=== PATIENT | female | born 2000 | race Caucasian/White ===

== ENCOUNTER 2022-03-03 15:38 | Emergency (ER) | payer BC, SELFPAY ==
--- NOTE | 2022-03-03 16:07 | ED.URI ---
HPI - URI/Sore Throat General Chief Complaint: Upper Respiratory Infection Stated Complaint: cough,chest pain, congestion Source: patient and RN notes reviewed Mode of arrival: ambulatory Limitations: no limitations History of Present Illness HPI Narrative: 22-year-old female presented for complaint of sinus congestion and pressure, cough, fatigue and feeling lightheaded for about 2 weeks. She endorses postnasal drainage, her ears feel clogged, headache, and body aches yesterday. She has been taking Sudafed, ibuprofen, Tylenol and nasal spray. She also took 1 week of amoxicillin prescribed by her PCP but states her symptoms were worse the next day. Denies nausea, vomiting, diarrhea, shortness of breath or wheezing. Of note, LMP 01/19/2022. She has not taken a home test. She is not vaccinated for COVID or flu. She denies sick contacts. MD elicited complaint: cough Related Data Home Medications Medication Instructions Recorded Confirmed ferrous sulfate 325 mg (65 mg tablet 03/03/22 iron) tablet lorazepam 1 mg tablet tablet 03/03/22 sertraline 50 mg tablet tablet 03/03/22 Allergies Allergy/AdvReac Type Severity Reaction Status Date / Time doxycycline Allergy Blister Verified 03/03/22 16:05 Review of Systems Review of Systems: CONSTITUTIONAL: Endorses malaise EYES: Denies visual changes, redness, or discharge ENT: Reports rhinorrhea, congestion, sinus pain CARDIOVASCULAR: Denies chest pain, palpitations, edema RESPIRATORY: Reports cough, post nasal drainage. Denies dyspnea GASTROINTESTINAL: Denies abdominal pain, nausea, vomiting, diarrhea MUSCULOSKELETAL: Endorses myalgia Exam Narrative: GENERAL: well-appearing HEAD: Normocephalic EYES: conjunctivae clear ENT: Mucous membranes moist. TM pearly nuñez with normal light reflex bilaterally; no tragal tenderness. Oropharynx normal, no drooling, no hoarseness, no trismus, uvula midline. NECK: Supple. No lymphadenopathy CHEST: Clear to auscultation, breath sounds equal. HEART: Regular rate and rhythm. No murmur heard. SKIN: Warm, dry, no rash. Course Course Emergency Course: Patient is aware of diagnosis, understands and agrees to treatment plan. Anticipatory guidance given. Patient agrees to follow-up as directed and is aware of reasons to seek care at the emergency department. Portions of this record may have been created with voice recognition software Level of Care: Express Care Visit Vital Signs Vital signs: Vital Signs Temperature 96.9 F L 03/03/22 16:08 Pulse Rate 75 03/03/22 16:08 Respiratory Rate 16 03/03/22 16:08 Blood Pressure 109/61 03/03/22 16:08 Pulse Oximetry 100 03/03/22 16:08 Temperature 96.9 F L 03/03/22 16:08 Pulse Rate 75 03/03/22 16:08 Respiratory Rate 16 03/03/22 16:08 Blood Pressure 109/61 03/03/22 16:08 Pulse Oximetry 100 03/03/22 16:08 reviewed MDM - URI/Sore Throat MDM Narrative Medical decision making narrative: Urine preg ordered due to LMP 01/19/22. Positive urine . Advised supportive treatment for URI, avoid OTC decongestants etc, and advised to follow-up with [facility]. Verbalizes understanding. Differential Diagnosis Differential diagnosis: Likely upper respiratory infection, sinusitis and viral infection Lab Data Labs: UCG Bedside Result Positive Reference Range: Negative Discharge Plan Discharge Clinical Impression: Positive urine test Upper respiratory infection Qualifiers: URI type: unspecified URI Qualified Code(s): J06.9 - Acute upper respiratory infection, unspecified Patient Disposition: Home, Self-Care Condition: Stable Instructions: Antibiotic Form Additional Instructions: Saline nasal spray Tylenol 1000mg every 8 hours as needed for pain Symptomatic treatment includes: rest, fluids, and increase humidity of the air at home. Positive urine pr
[2022-03-03 16:08] VITALS: BP 109/61; PULSE 75; RESP 16; TEMP 36.1; O2SAT 100
== END 2022-03-03 16:46 | disposition home or self-care (01) ==
PROVIDERS: Emergency Provider Nurse Practitioner Family
DX: O99.519 Diseases of the respiratory system complicating pregnancy, unspecified trimester (principal); Z3A.00 Weeks of gestation of pregnancy not specified; J06.9 Acute upper respiratory infection, unspecified
CPT/HCPCS: 81025; 99212; G0463

== ENCOUNTER 2022-03-18 13:56 | Emergency (ER) | payer BC, SELFPAY ==
[2022-03-18 13:56] VITALS: BP 99/57; PULSE 72; RESP 18; TEMP 36.8; O2SAT 100
[2022-03-18 14:05] VITALS: TEMP 36.2
[2022-03-18 14:16] VITALS: BP 108/60; PULSE 84; RESP 23; O2SAT 100
[2022-03-18] MEDS: KETOROLAC 30 MG/ML VIAL (*BKC) IV PUSH (14:22)
[2022-03-18] MEDS: ONDANSETRON INJ 4 MG/2 ML VIAL IV PUSH (14:22)
[2022-03-18] MEDS: SODIUM CHLORIDE 0.9% IV 1,000 ML 999 ML IV CONT (14:23)
[2022-03-18 14:30] LABS: Basophils Percent Auto 0.2 % (0.2-1.2); Eosinophils Absolute Auto 0.1 K/mm3 (0-0.3); Eosinophils Percent Auto 0.7 % (0-4.4); Hematocrit 40.9 % (37.0-47.0); Hemoglobin 13.8 g/dL (12.0-15.0); Immature Granulocyte Absolute 0.02 K/mm3 (0.00-0.031); Immature Granulocyte Percent A 0.2 % (0-0.5); Lymphocytes Absolute Auto 1.99 K/mm3 (0.9-3.2); Lymphocytes Percent Auto 22.8 % (18.3-44.2); Mean Corpuscular HGB Conc 33.7 g/dl (32-36); Mean Corpuscular Hemoglobin 29.7 pg (26-34); Mean Platelet Volume 10.8 fl (7.4-10.4); Monocytes Absolute Auto 0.7 K/mm3 (0.1-0.6); Monocytes Percent Auto 7.8 % (2.6-8.5); Neutrophils Absolute Auto 5.9 K/mm3 (1.3-6.7); Neutrophils Percent Auto 68.3 % (45.5-73.1); Platelet Count Result 248 k/mm3 (150-375); Red Blood Count 4.65 M/mm3 (4.2-5.4); Red Cell Distribution Width 12.4 % (11.5-14.5); White Blood Count 8.7 K/mm3 (4.5-10.0)
[2022-03-18 14:31] VITALS: BP 101/48; PULSE 68; RESP 19; O2SAT 100
[2022-03-18 14:41] LABS: Alanine Aminotransferase 16 U/L (6-35); Albumin Level 4.5 g/dL (3.5-5.1); Alkaline Phosphatase 52 U/L (38-126); Anion Gap 11 mmol/L (8-16); Aspartate Amino Transferase 20 U/L (14-36); Bilirubin,Total 0.8 mg/dL (0.2-1.3); Blood Urea Nitrogen 6 mg/dL (7-17); Calcium 8.9 mg/dL (8.4-10.2); Carbon Dioxide 18 mmol/L (22-30); Chloride 106 mmol/L (98-107); Estimated CRCL calculation 159 ml/min; Estimated Glomerular Filt Rate > 60; Glucose 88 mg/dL (65-110); Potassium 3.8 mmol/L (3.4-5.0); Sodium 135 mmol/L (137-145)
[2022-03-18 14:42] LABS: INR 1.1; Prothrombin Time 13.7 Seconds (11.1-14.7)
--- NOTE | 2022-03-18 15:16 | ED.ABDPAIN ---
HPI - Abdominal Pain General Chief Complaint: Abdominal Pain Stated Complaint: abd pain Time Seen by Provider: 03/18/22 13:58 History of Present Illness HPI narrative: Patient is a 22-year-old female who presents ER with lower abdominal pain and cramping. Began 10 minutes after taking her misoprostol for elective . She is 8 weeks along her . She went to the [facility]. She had a confirmed IUP on ultrasound prior to receiving her medications. She reports scant bleeding that began yesterday. No fevers or chills or sweats. She started having nausea and vomiting with her cramping. Patient is G1, P0. Related Data Home Medications Medication Instructions Recorded Confirmed ferrous sulfate 325 mg (65 mg 1 tablet PO DAILY 03/03/22 03/03/22 iron) tablet lorazepam 1 mg tablet 1 tablet PO BID PRN Anxiety 03/03/22 03/03/22 sertraline 50 mg tablet 1 tablet PO DAILY 03/03/22 03/03/22 Allergies Allergy/AdvReac Type Severity Reaction Status Date / Time doxycycline Allergy Blister Verified 03/18/22 14:27 Review of Systems Review of Systems: All systems reviewed & are unremarkable except as noted in HPI and below Constitutional: Constitutional: Denies chills, Denies fatigue and Denies fever(s) ENT: Denies nasal congestion and Denies sore throat Respiratory: Respiratory: Denies cough and Denies dyspnea Gastrointestinal: Gastrointestinal: Reports abdominal pain, Denies diarrhea, Reports nausea and Reports vomiting Genitourinary: Genitourinary: Denies nocturia and Denies dysuria PMFSH Past Medical History Medical History (Updated 03/18/22 @ 17:25 by Gordon Wick MD) Healthy female adult Surgical History Surgical History (Updated 03/18/22 @ 15:20 by Gordon Wick MD) No pertinent past surgical history Exam Narrative: GENERAL: Uncomfortable-appearing, well-nourished, and in no acute distress. HEAD: Normocephalic, atraumatic. ENT: Mucous membranes moist. CHEST: Clear to auscultation. No respiratory distress. HEART: Regular rate and rhythm. Normal peripheral pulses. ABDOMEN: Soft, mild suprapubic discomfort without rebound/guarding, nondistended. EXTREMITIES: Normal range of motion. No edema. SKIN: Warm, dry, no rash. NEURO: Alert and oriented x3. PSYCH: Normal mood and affect. Course Course Emergency Course: Cramping waxing and waning. Labs unremarkable. Consider this normal course for medication induced . Discharge home. Vital Signs Vital signs: Vital Signs Temperature 98.2 F 03/18/22 13:56 Pulse Rate 72 03/18/22 13:56 Respiratory Rate 18 03/18/22 13:56 Blood Pressure 99/57 L 03/18/22 13:56 Pulse Oximetry 100 03/18/22 13:56 Oxygen Delivery Room Air 03/18/22 13:56 Temperature 97.2 F L 03/18/22 14:05 Pulse Rate 68 03/18/22 14:31 Respiratory Rate 19 03/18/22 14:31 Blood Pressure 101/48 L 03/18/22 14:31 Pulse Oximetry 100 03/18/22 14:31 Oxygen Delivery Room Air 03/18/22 13:56 MDM - Abdominal Pain Lab Data Result diagrams: 03/18/22 14:22 03/18/22 14:22 Labs: Lab Results 03/18/22 03/18/22 03/18/22 Range/Units 14:22 14:22 14:22 WBC 8.7 (4.5-10.0) K/mm3 RBC 4.65 (4.2-5.4) M/mm3 Hgb 13.8 (12.0-15.0) g/dL Hct 40.9 (37.0-47.0) % MCV 88.0 (80-100) fl MCH 29.7 (26-34) pg MCHC 33.7 (32-36) g/dl RDW 12.4 (11.5-14.5) % Plt Count 248 (150-375) k/mm3 MPV 10.8 H (7.4-10.4) fl Immature Gran % (Auto) 0.2 (0-0.5) % Neut % (Auto) 68.3 (45.5-73.1) % Lymph % (Auto) 22.8 (18.3-44.2) % Harmon % (Auto) 7.8 (2.6-8.5) % Eos % (Auto) 0.7 (0-4.4) % Baso % (Auto) 0.2 (0.2-1.2) % Lymph # (Auto) 1.99 (0.9-3.2) K/mm3 Harmon # (Auto) 0.7 H (0.1-0.6) K/mm3 Eos # (Auto) 0.1 (0-0.3) K/mm3 Baso # (Auto) 0.0 (0.0-0.1) K/mm3 Abs Immat Gran (auto) 0.02 (0.00-0.031) K/mm3 Absolute Neuts (auto) 5.9 (1.3-6.7)
--- NOTE | 2022-03-18 15:31 | PC.NURSE ---
Patient lying in bed eating. Patient reports she feels much better.
[2022-03-18] MEDS: HYDROcodone/acetaminophen (*CRX) 5-325 MG TABLET 1 TAB PO (17:26)
== END 2022-03-18 17:34 | disposition home or self-care (01) ==
PROVIDERS: Emergency Provider Emergency Medicine; PCP Family Medicine
DX: N94.89 Other specified conditions associated with female genital organs and menstrual cycle (principal)
CPT/HCPCS: 36415; 80053; 84702; 85025; 85610; 85730; 86850; 86900; 86901; 96361; 96374; 96375; 99284; A9270; J1885; J2405; J7030

== ENCOUNTER 2025-03-14 11:11 | Emergency (ER) | payer BC, SELFPAY ==
--- NOTE | 2025-03-14 11:15 | ED.URI ---
HPI - URI/Sore Throat General Chief Complaint: Upper Respiratory Infection Stated Complaint: Fever Source: patient Mode of arrival: ambulatory Limitations: no limitations Related Data Home Medications ?Medication ?Instructions ?Recorded ?Confirmed ?Last Taken ?Type sertraline 50 mg tablet 1 tablet PO DAILY 03/03/22 05/30/24 Unknown History Allergies Allergy/AdvReac Type Severity Reaction Status Date / Time levofloxacin (From Levaquin) Allergy Mild Hives Verified 03/14/25 11:31 doxycycline Allergy Blister Verified 03/14/25 11:31 Review of Systems Review of Systems: All systems reviewed & are unremarkable except as noted in HPI and below Constitutional: Constitutional: Denies chills, Denies fatigue, Denies fever(s), Denies headache(s), Denies malaise and Denies weakness Eyes: Eyes: Denies blurry vision, Denies itchy eyes and Denies loss of vision ENT: Denies otalgia, Denies headache(s), Reports nasal congestion, Denies sinus pain and Denies sore throat Cardiovascular: Cardiovascular: Denies chest pain, Denies irregular heart rhythm and Denies dyspnea Respiratory: Respiratory: Reports cough and Denies dyspnea Gastrointestinal: Gastrointestinal: Denies abdominal pain, Denies diarrhea, Denies nausea and Denies vomiting Musculoskeletal: Musculoskeletal: Denies back pain, Denies myalgias and Denies arthralgias Integumentary/Breasts: Skin/Breast: Denies pruritus and Denies rash Neurologic: Denies headache(s), Denies loss of vision and Denies weakness Psychiatric: Psychiatric: Reports no additional psychiatric complaints Endocrine: Endocrine: Denies fatigue Allergic/Immunologic: Allergic/Immunologic: Denies itchy eyes PMFSH Past Medical History Medical History (Updated 03/14/25 @ 11:51 by Beatrice Jacobson, [employer]) Encounter for gynecological examination HPV in female Healthy female adult Surgical History Surgical History H/O wisdom tooth extraction No pertinent past surgical history Social History Social History Smoking status: Former smoker Alcohol intake: current Substance use: never Substance use type: does not use Do You Feel Safe in your Home?: Yes Lack of Transportation: No Lack of Food: Never True Current Housing: I Have Housing Concerned About Future Housing: No Difficulty Paying Gas/Electric Bills: No Difficulty Paying for Meds: No Currently Unemployed: No Education: High School Diploma/GED Difficulty w/ Childcare or Family Care: No Living arrangements: with roommate(s) Occupation/Education: occupation Gender identity (if verbalized by the patient): Female Comments At time of signature, agree with nursing past medical, surgical, social and family history. There is no relevant family history pertinent to the presenting complaint. Exam Const: General: cooperative, healthy appearing, comfortable, no acute distress and well nourished Nutritional Appearance: well nourished Orientation/consciousness: patient oriented x3 Limitations: no limitations HENMT: Head: normal to inspection, normocephalic and atraumatic Ears: hearing grossly normal bilaterally, external ears normal, TM's normal bilaterally, EAC's normal and no periauricular adenopathy Face/Nose/Sinus: Normal external nose present, Abnormal mucous membranes and turbinates present erythematous bilateral and diffuse, normal facial exam, sinuses nontender and face symmetric Face and sinus: normal facial exam, sinuses nontender and face symmetric Mouth: Yes Normal oral and palatal mucosa present, Yes lip normal, Yes tongue normal, Yes Normal salivary glands and ducts present, Yes oropharynx normal and Yes moist mucous membranes Teeth and gingiva: dentition normal Throat: posterior oropharynx normal, tonsils normal and uvula midline Eyes: General: appearance normal, both eyes and all related structures Alignment and Position: alignment normal and position normal Periorbital: periorbital findings normal Eyelids: eyelids normal Pupils: Equal, round and reactive pupils present Neck: Neck: normal visual inspection, full ROM, no lymphadenopathy and supple Chest: Chest palpation & inspection: normal inspection of the chest and normal palpation of entire chest wall Resp: Effort & Inspection: normal respiratory effort and able to speak in complete sentences Auscultation: clear to auscultation bilaterally, no crackles, no rales, no rhonchi and no wheezes Cardio: Rate: regular rate Rhythm: regular rhythm Heart sounds: S1 normal heart sound present and S2 normal heart sound present GI: Inspection: normal to inspection Skin: General skin exam: normal color and no rashes or lesions noted Neuro: General: patient oriented x3 and moves all extremities Cranial nerves: Yes Equal, round and reactive pupils present Speech: normal speech Gait exam (Neuro): Normal gait present Extrem: General: normal to inspection, full ROM and no edema Psych: Appearance: grossly normal and well kempt Mental Status: mental status grossly normal Speech and movement: Normal speech and movement present Affect: normal affect Attitude: cooperative Thought process: Normal thought process present Course Course Emergency Course: Discharge instructions reviewed with patient, as well as provided in writing per nursing staff. The instructions also include specific and strict return/GO TO THE ER as well as f/u information. All questions have been answered, and the patient deny any further questions with discharge and discharge plan. Portions of this record may have been created with voice recognition software Level of Care: Express Care Visit Vital Signs Vital signs: Vital Signs Temperature 36.7 C 03/14/25 11:18 Pulse Rate 112 H 03/14/25 11:18 Respiratory Rate 20 03/14/25 11:18 Blood Pressure 99/71 L 03/14/25 11:18 Pulse Oximetry 100 03/14/25 11:18 Oxygen Delivery Room Air 03/14/25 11:18 Temperature 36.7 C 03/14/25 11:18 Pulse Rate 113 H 03/14/25 11:56 Respiratory Rate 20 03/14/25 11:18 Blood Pressure 108/67 03/14/25 11:56 Pulse Oximetry 100 03/14/25 11:56 Oxygen Delivery Room Air 03/14/25 11:56 Reviewed MDM - URI/Sore Throat MDM Narrative Medical decision making narrative: Pt well hydrated appearing, in no respiratory distress, hemodynamically stable. Recommend supportive care. The patient is stable at time of discharge the clinical impression was discussed and the patient was given the opportunity to ask questions, which were addressed as completely as possible given the information available at present. Anticipatory guidance and return to care precautions were discussed and the importance of primary care follow-up was stressed and encouraged. The patient voiced understanding of the plan, indications to return, and the need for follow-up. Exam findings show no acute concerns or changes Patient is appropriate for outpatient treatment and follow-up. Differential diagnosis considered: [place] virus, strep pharyngitis, allergic rhinitis, upper respiratory tract infection, sinusitis, rhinosinusitis, nasopharyngitis. viral pharyngitis, otitis media, otitis externa, otitis effusion, foreign body, cerumen impaction, viral syndrome, and influenza.? Medical Records Attestation: I reviewed the patient's medical records. Lab Data Attestation: I reviewed the patient's lab results. Labs: Lab Results 03/14/25 03/14/25 Range/Units 11:28 11:40 POC Urine Color Tea colored POC Urine Clarity Cloudy POC Urine pH 6.0 POC Ur Specif [place] 1.030 POC Urine Protein 1+ (Negative) POC Ur Glucose (UA) Negative (Negative) POC Urine Ketones Negative (Negative) POC Urine Blood Negative (Negative) POC Urine Nitrite Negative (Negative) POC Urine Bilirubin 1+ (Negative) POC Urine Urobilinogen 0.2 POC U Leukocyte Esteras Negative (Negative) POC Grp A Strep Screen Positive (Negative) Discharge Plan Discharge Clinical Impression: Strep throat Patient Disposition: Home Condition: Stable Instructions: Strep Throat (ED) Additional Instructions: Your rapid strep swab was positive today at [facility]. After 24 hours on antibiotics throw tooth brush away and start using a new one. Wash your sheets and cup/water bottle that is used daily. Do not share drinks. Take Motrin alternating with Tylenol for pain and fever alternating every 3 hours. 8 AM: Tylenol 11 AM: Ibuprofen 2 PM: Tylenol 5 PM: Ibuprofen 8 PM: Tylenol 11 PM: Ibuprofen 2 AM: Tylenol 5 AM: Ibuprofen Increase fluids, avoid caffeine. Other symptomatic treatments include: -Antihistamine medication such as Benadryl at night and Zyrtec/Claritin/Jahaira during the day can help improve symptoms. -Use Flonase twice a day for 5 days then daily to help reduce the inflammation and dry up your sinuses. -You can also use Sudafed or Mucinex. Be sure to drink plenty of water with these medications at least 8 ounces with every dose and it is important to drink 8 to 10 glasses of water per day. Water is a natural decongestant -Eat and drink things that are easy to swallow, like tea or soup, or popsicles. -Oral rinses such as: Salt water gargles and/or may use topical anesthetic (eg. Chloraseptic spray) or lozenges to relieve dryness or throat pain). -Frequent hand washing or hand railroad detective is one of the best ways to prevent spread of infection. -Using a vaporizer or humidifier at night will also help thin secretions and help with coughing up phlegm. -Follow up with primary care provider in 3-5 days if condition is not improving - For new or worsening symptoms go directly to the nearest ER Patient Language: Icelandic Prescriptions: New amoxicillin-pot clavulanate 875-125 mg tablet 1 tablet PO Q12H 10 Days Qty: 20 0RF No Action sertraline 50 mg tablet 1 tablet PO DAILY Follow-up/Referrals: Nixon Grewal MD [Physician] - 3 Days (Establish care) Stand Alone Forms: Work/School Release IP Time of Disposition: 11:52
[2025-03-14 11:18] VITALS: BP 99/71; PULSE 112; RESP 20; TEMP 36.7; O2SAT 100
[2025-03-14 11:40] LABS: EDSTREPNEGPOS1 Positive (Negative)
[2025-03-14 11:50] LABS: EDUAAPPEAR Cloudy; EDUABILI 1+ (Negative); EDUABLOOD Negative (Negative); EDUACOLOR1 Tea Colored; EDUAGLUCOSE Negative (Negative); EDUAKETONE Negative (Negative); EDUALEUKO Negative (Negative); EDUANITRATE Negative (Negative); EDUAPROTEIN 1+ (Negative); EDUAUROBILI 0.2
[2025-03-14 11:56] VITALS: BP 108/67; PULSE 113; O2SAT 100
== END 2025-03-14 11:56 | disposition home or self-care (01) ==
PROVIDERS: Emergency Provider Nurse Practitioner Family
DX: J02.0 Streptococcal pharyngitis (principal); Z87.891 Personal history of nicotine dependence
CPT/HCPCS: 81003; 87880; 99213; G0463

== ENCOUNTER 2025-03-14 13:57 | Emergency (ER) | payer BC, SELFPAY ==
--- NOTE | ~2025-03-14 | XR_ITS ---
XR chest 1V portable Ordering provider: Chris Noriega MD History: 25 years Female with . URI X WEAK X OVERHEATED XVOMITING TODAY . Comparison: None. FINDINGS: MEDIASTINUM: The cardiac silhouette is not enlarged. LUNGS: No infiltrates, effusions or pneumothorax. OTHER: No free air under the diaphragm. IMPRESSION: No acute cardiopulmonary pathology. Reviewed, dictated and finalized at location A.
--- OUTSIDE RECORDS SUMMARY | 2025-03-14 14:00 | XMS_ITS | Referral Summary ---
Author Organization [facility] Address [address] [place] [address] Care Team Providers Care [employer] Teacher Name Role Phone Chester Bañuelos MD Primary Care Provider [phone] Encounters Date Type Department Care Team Description 02/03/2025 2:00 PM CDT Telemedicine [facility] Medical Group Family Medicine at [address] [place] [address] Chester Bañuelos MD ALIREZA (generalized anxiety disorder) (Primary Dx); Moderate episode of recurrent major depressive disorder (HCC) from Last 3 Months Allergies Active Allergy Reactions Criticality Noted Date Comments Doxycycline Other (See comments),Rash Medium 7 Reaction: Other Levofloxacin Palpitations Low 05/01/2019 Medications hydrocortisone 1 % cream Apply 1 Application topically 2 (two) times a day 30 g 4 Active Additional Information Patient not taking.Reported on 02/03/2025 NOT IN DATABASE, PRESCRIPTION,In dications:Abnor mal weight gain,Class 2 obesity due to excess calories without serious comorbidity with body mass index (BMI) of 38.0 to 38.9 in adult,PCOS (polycystic ovarian syndrome) Semaglutide 2.65 mg/ml with levocarnitine 100mg/ml 0.1 ml weeks 1-4 0.2 ml weeks 5-8 0.4 ml weeks 9-12 0.8 ml weeks 13-16 1 ml week 17 and on. Please send 2 ml 04/30/24 2 each 5 Active clonazePAM (KlonoPIN) 2 mg tabletIndicatio ns:Panic Disorder Take 1 tablet (2 mg total) by mouth 2 (two) times a day as needed for anxiety Next time just activate your next 5 refills 60 tablet 5 5 025 Active sertraline (ZOLOFT) 100 mg tabletIndicatio ns:ALIREZA (generalized anxiety disorder),Moder ate episode of recurrent major depressive disorder (HCC) Take 1 tablet (100 mg total) by mouth nightly 90 tablet 1 5 025 Active Active Problems Problem Noted Date Diagnosed Date Abnormal weight gain 02/08/2024 Class 1 obesity due to exces s calories without serious comorbidity with body mass index (BMI) of 30.0 to 30.9 in adult 02/08/2024 Assessment & Plan (07/16/2024 8:19 AM CDT): Recommended aggressive Lifestyle modification and weight loss for improving overall weight related health conditions. Follow up in 1 or 3 months for continuing Lifestyle Medicine education and management visit. Recommend Lifestyle/Nutrition/Weight Loss Seminar on every other Tuesdays @ 5pm. 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 07/10/2023 Assessment & Plan (07/10/2023 11:28 PM CDT): Reviewed recent pt thyroid ultrasound report and images Noted heterogenous thyroid gland findings suggestive of chandu's No discrete thyroid nodules noted No compressive symptoms Check TSH and TPO ab Obesity (BMI 30-39.9) 07/10/2023 Assessment & Plan (07/10/2023 11:29 PM CDT): Counseled on diet and exercise Rule out Cushings , will order low dose dexamethasone suppression test Hirsutism 07/10/2023 Lentigines 11/18/2020 Overview (01/04/2021): Last Assessment & Plan: - Benign, patient reassured - Skin cancer, sun protection, and photoaging discussed - Sunscreen handout provided Multiple benign melanocytic nevi of upper extremity, lower extremity, and trunk 11/18/2020 Overview (01/04/2021): Last Assessment & Plan: - No atypical or concerning moles on exam today - Reviewed ABCDEs of melanoma - Sun protection reviewed, handout provided - Annual FBSE recommended - Strongly advised patient to stop tanning bed use; Counseled on associated risks of skin cancer and skin aging Labial adhesions 11/18/2020 Moderate episode of recurrent major depressive d isorder 10/12/2020 Recurrent major depressive disorder, in full rem ission 09/01/2020 Assessment & Plan (09/01/2020 2:46 PM WARRANTY ADMINISTRATOR): Responded well to switch from Lexapro to Zoloft. She states her mood is much improved. She has not had the using Ativan last 1 week. Patient denies any side effects will continue current regimen patient advised to call us with any question concerns prior to her three-month follow-up Abnormal uterine bleeding (AUB) 08/05/2020 ALIREZA (generalized anxiety disorder) 06/18/2019 Assessment & Plan (09/01/2020 2:47 PM WARRANTY ADMINISTRATOR): Responding well significant reduction in need for Ativan. Gastroesophageal reflux disease without esophagi tis 06/18/2019 Acne vulgaris 01/24/2015 Multiple benign nevi 01/24/2015 Resolved Problems Problem Noted Date Diagnosed Date Resolved Date Bipolar 1 disorder, depressed, moderate 03/28/2023 05/22/2023 Immunizations Immunization Administration Dates Next Due DTaP 2000,2000,2000 Hep B, Adolescent or Pediatric 2000,1999 HiB 2000,2000,2000 IPV 2000,2000 Influenza, Unspecified 06/02/2024(Deferr ed: Patient decision),11/15/2023(Deferred: Patient decision),11/29/2022(Deferred: Patient Refused),06/28/2022(Deferred: Patient decision) Pneumococcal Conjugate 7-Valent 2000,07/06,2000 Varicella 03/22/2007 Social History Tobacco Use Types Packs/Day Years Used Date Smoking Tobacco: Never Smokeless Tobacco: Never Tobacco Cessation:Counseling Given: Not Answered Alcohol Use Standard Drinks/Week Comments Yes 0 (1 standard drink = 0.6 oz pur e alcohol) socially AUDIT-C Answer Date Recorded Q1: How often do you have a drink containing alcohol? Never 10/16/2024 Q2: How many drinks containi ng alcohol do you have on a typical day when you are drinking? Patient does not drink Q3: How often do you have si x or more drinks on one occasion? Never 10/16/2024 PHQ-2 Answer Date Recorded PHQ-2 Total Score (If total score is 3 or more points, staff should administer the PHQ-9) 0 02/03/2025 Comments No Sex and Gender Information Value Date Recorded Sex Assigned at Not on file Legal Sex Female 10:51 PM WARRANTY ADMINISTRATOR Gender Identity Female 03/26/2020 10:19 AM CDT Sexual Orientation Not on file Last Filed Vital Signs Vital Sign Reading Time Taken Comments Blood Pressure 108/70 06/13/2023 11:23 AM CDT Pulse 91 06/13/2023 11:23 AM CDT Temperature 36.9 C (98.4 F) 05/22/2023 8:53 AM CDT Respiratory Rate 17 06/13/2023 11:23 AM CDT Oxygen Saturation 98% 05/22/2023 8:53 AM CDT Inhaled Oxygen Concentration - - Weight 74.8 kg (165 lb) 02/03/2025 2:22 PM CDT Height 165.1 cm (5' 5) 02/03/2025 2:22 PM CDT Body Mass Index 27.46 02/03/2025 2:22 PM CDT Plan of Treatment Not on file Procedures Procedure Name Priority Date/Time Associated Diagnosis Comments HM PAP SMEAR WITH HPV Routine 09/17/2021 from Last 3 Months or Most Recently Relevant to Health Maintenance Results * HM PAP SMEAR WITH HPV (09/17/2021) Historical Provider HEALTH MAINTENANCE Final Result from Last 3 Months or Most Recently Relevant to Health Maintenance Insurance [facility] Care Teams [employer] Special Education Teacher Relationship Specialty Start Date End Date Chester Bañuelos MD [facility] [place] [place] [address] PCP - General Family Medicine 05/22/23
--- OUTSIDE RECORDS SUMMARY | 2025-03-14 14:00 | XMS_ITS | Clinical Summary ---
Author Organization [facility] Address [address] [place] [address] Care Team Providers Care Engineer/Conductor Name Role Phone Chester Bañuelos MD Primary Care Provider Allergies Active Allergy Reactions Criticality Noted Date [...] 09/01/2020 Assessment & Plan (09/01/2020 2:46 PM PHYSICAL BIOCHEMIST): Responded well to switch from Lexapro to [...] 06/18/2019 Assessment & Plan (09/01/2020 2:47 PM PHYSICAL BIOCHEMIST): Responding well significant reduction in need for Ativan. Gastroesophageal reflux disease without esophagi tis 06/18/2019 Acne vulgaris 01/24/2015 Multiple benign nevi 01/24/2015 Resolved Problems Problem Noted Date Diagnosed Date Resolved Date Bipolar 1 disorder, depressed, moderate 03/28/2023 05/22/2023 Encounters Date Type Department Care Team Description 02/03/2025 2:00 PM CDT Telemedicine [facility] Medical Group Family Medicine at [address] [address] Chester Bañuelos MD ALIREZA (generalized anxiety disorder) (Primary Dx); Moderate episode of recurrent major depressive disorder (HCC) from Last 3 Months Immunizations Immunization Administration Dates Next Due DTaP 2000,2000,2000 Hep B, Adolescent or Pediatric 2000,1999 HiB 2000,2000,2000 IPV 2000,2000 Influenza, Unspecified 06/02/2024(Deferr ed: Patient decision),11/15/2023(Deferred: Patient decision),11/29/2022(Deferred: Patient Refused),06/28/2022(Deferred: Patient decision) Pneumococcal Conjugate 7-Valent 2000,07/06,2000 Varicella 03/22/2007 Surgical History Surgery Date Site/Laterality Comments DE DRAINAGE FINGER ABSCESS SIMPLE Incision And Drainage Of Finger Abscess - (Added by TW Conv) DE TONSILLECTOMY PRIMARY/SEC ONDARY <AGE 12 Tonsillectomy - (Added by TW Conv) TONSILLECTOMY AND ADENOIDECTOMY WISDOM TOOTH EXTRACTION Bilateral Medical History Medical History Date Comments Other specified health status No known problems - (Added by TW Conv) Anxiety disorder Anxiety - (Adde d by TW Conv) MRSA (methicillin resistant staph aureus) culture positive Family History Medical History Relation Name Comments Anxiety disorder Brother Hypertension Father Jose garcia Ovarian cancer Maternal Grandmother Anxiety disorder Mother Ira garcia Hypertension Mother Ira garcia uterine fibroids Mother Ira garcia Relation Name Status Comments Brother Alive Father Jose garcia Alive Maternal Grandmother Mother Ira garcia Alive Sister Alive Social History Tobacco Use Types Packs/Day Years [...] on file Legal Sex Female 10:51 PM PHYSICAL BIOCHEMIST Gender Identity Female 03/26/2020 10:19 AM CDT Sexual Orientation Not on file Obstetrics History Para Term AB IAB SAB Ectopic Multiple Livin g Live Births 0 0 0 0 0 0 0 0 0 0 0 Last Filed Vital Signs Vital Sign Reading [...] 02/03/2025 2:22 PM CDT Plan of Treatment Health Maintenance Due Date Last Done Comments Hepatitis C Screening 2000 Varicella Vaccines (2 of 2 - 2-dose childhood series) 06/14/2007 03/22/2007 DTaP/Tdap/Td Vaccine (4 - Tdap) 01/26/2011 2000, 2000, 2000 HPV Vaccines (1 - 3-dose series) 01/26/2015 Regular Well Visit/Exam 18-64 01/26/2018 Cervical Cancer Screening 09/17/2022 09/17/2021 Influenza Vaccine (Season Ended) 2025 Depression Screening 02/03/2026 02/03/2025, 02/08/2024, 06/13/2023, Additional history exists Hepatitis B Screening Completed 2000, 000 Pneumococcal vaccine <65 Aged Out 001, 2000, 2000 No longer eligible based on patient's age to complete this topic Procedures Procedure Name Priority Date/Time Associated Diagnosis Comments HM PAP SMEAR WITH HPV Routine 09/17/2021 from Last 3 Months or Most Recently Relevant to Health Maintenance Results * PAP SMEAR WITH HPV (09/17/2021) Historical Provider HEALTH MAINTENANCE Final Result from Last 3 Months or Most Recently Relevant to Health Maintenance Insurance [employer] [place] Care Teams Engineer/Conductor Relationship Specialty Start Date End Date Chester Bañuelos MD [address] [place] [address] PCP - General Family Medicine 05/22/23
--- OUTSIDE RECORDS SUMMARY | 2025-03-14 14:00 | XMS_ITS | Clinical Summary ---
Author Organization [facility] Address [address] [place] [address] Care Team Providers Care Hairspring Studder Name Role Phone Chester Bañuelos MD Primary Care Provider [phone] Source Comments [facility],non-owned Affiliates and Associated Physician Practices is amultiple site organization consisting of ambulatory clinics and hospital sitesin [place], [place], [place] and [place]. This disclosure is being madepursuant to the Care Everywhere program and may not contain all information available regarding this patient. Last updated 18.[facility] Allergies Active Allergy Reactions Criticality Noted Date Comments Doxycycline Rash Medium 01/08/2017 Medications * Be aware that medications may not be up to date on this document. Alwaysverify current medications with the patient. sertraline (ZOLOFT) 50 MG tablet Take 1 (one) tablet by mouth once daily 0 Active ferrous sulfate 325 (65 FE) MG tablet Take 1 (one) tablet by mouth daily with breakfast 1 Active LORazepam (ATIVAN) 1 MG tablet TAKE 1 TABLET (1 MG TOTAL) BY MOUTH TWO TIMES A DAY NEEDED FOR ANXIETY. 2 Active Vraylar 3 MG capsule Take 1 (one) capsule by mouth once daily 3 Active Vraylar 1.5 MG capsule PLEASE SEE ATTACHED FOR DETAILED DIRECTIONS 3 Active norethindone-et hinyl estradiol-FE (Brandan 24 FE) 1-20 MG-MCG(24) tablet Take 1 (one) tablet by mouth once daily 1 packet 11 3 Active mefenamic acid (Ponstel) 250 MG capsule Take 1 (one) capsule by mouth as directed Take 2 tabs to start then 1 tab every 6 hours as needed for pain 30 capsule 5 3 Active Active Problems Problem Noted Date Diagnosed Date Screening for malignant neoplasm of cervix 09/10 Overview (09/10/2021): 09/21 ascus pos hpv neg 16/18/45 asccp rec one year follow up Labial adhesions 11/18/2020 Multiple benign melanocytic nevi of upper extremity, lower extremity, and trunk 11/18/2020 Assessment & Plan (11/18/2020 4:30 PM EMPLOYMENT SUPERVISOR): - No atypical or concerning moles on exam today - Reviewed ABCDEs of melanoma - Sun protection reviewed, handout provided - Annual FBSE recommended - Strongly advised patient to stop tanning bed use; Counseled on associated risks of skin cancer and skin aging Lentigines 11/18/2020 Assessment & Plan (11/18/2020 4:31 PM EMPLOYMENT SUPERVISOR): - Benign, patient reassured - Skin cancer, sun protection, and photoaging discussed - Sunscreen handout provided Moderate episode of recurrent major depressive d isorder 10/12/2020 Recurrent major depressive disorder, in full rem ission 09/01/2020 Overview (09/02/2021): Last Assessment & Plan: Responded well to switch from Lexapro to Zoloft. She states her mood is much improved. She has not had the using Ativan last 1 week. Patient denies any side effects will continue current regimen patient advised to call us with any question concerns prior to her three-month follow-up Abnormal uterine bleeding (AUB) 08/05/2020 ALIREZA (generalized anxiety disorder) 06/18/2019 Overview (09/02/2021): Last Assessment & Plan: Responding well significant reduction in need for Ativan. Gastroesophageal reflux disease without esophagi tis 06/18/2019 Other viral warts 04/19/2016 Acne vulgaris 01/24/2015 Multiple benign nevi 01/24/2015 Immunizations Immunization Administration Dates Next Due DTaP VACCINE IM (6wk-6yrs) 2000,2000 ,2000 HEP B VACCINE, PED/ADOL 2000,2000 HIB VACCINE 2000,2000,2000 PNEUMOCOCCAL PCV7 CONJ, PEDS 2000,07/06/20 00,2000 POLIO IPV 2000,2000 VARICELLA 03/22/2007 Family History Medical History Relation Name Comments Depression Brother Hyperlipidemia Father Hypertension Father Cancer - Colon Maternal Aunt Cancer - Ovarian Maternal Grandmother Depression Maternal Grandmother Depression Maternal Uncle Depression Mother Hyperlipidemia Mother Hypertension Mother Cancer - Prostate Paternal Grandfather Cancer - Breast Paternal Uncle Relation Name Status Comments Brother Father Maternal Aunt Maternal Grandmother Maternal Uncle Mother Paternal Grandfather Paternal Uncle Social History Tobacco Use Types Packs/Day Years Used Date Smoking Tobacco: Former Smokeless Tobacco: Never Tobacco Cessation:Counseling Given: Not Answered Alcohol Use Standard Drinks/Week Comments Yes 0 (1 standard drink = 0.6 oz pur e alcohol) PHQ-2 Answer Date Recorded Patient Health Questionnaire-2 Score 0 06/01/2023 Comments No Sex and Gender Information Value Date Recorded Sex Assigned at Not on file Legal Sex Female 5:42 AM EMPLOYMENT SUPERVISOR Gender Identity Not on file Sexual Orientation Not on file Last Filed Vital Signs Vital Sign Reading Time Taken Comments Blood Pressure 114/74 07/06/2023 8:38 AM CDT Pulse 75 06/01/2023 7:28 AM CDT Temperature 36.8 C (98.2 F) 11/18/2020 2:00 PM EMPLOYMENT SUPERVISOR Respiratory Rate 20 04/28/2022 8:30 AM CDT Oxygen Saturation 98% 06/01/2023 7:28 AM CDT Inhaled Oxygen Concentration - - Weight 101.2 kg (223 lb) 07/06/2023 8:38 AM CDT Height 165.1 cm (5' 5) 07/06/2023 8:38 AM CDT Body Mass Index 37.11 07/06/2023 8:38 AM CDT Plan of Treatment Health Maintenance Due Date Last Done Comments HEPATITIS B VACCINE (3 of 3 - 3-dose series) 2000 2000, 2000 HPV VACCINE (1 - 3-dose series) 01/26/2015 CHLAMYDIA/GONORRHEA SCREENING 2016 DTAP/TDAP/TD VACCINES (4 - Tdap) 01/26/2019 2000, 2000, 2000 COVID-19 VACCINE (1 - 2023-2 5 season) 2024 PAP SMEAR 09/02/2024 09/02/2021 DEPRESSION SCREENING 10/02/2024 08/07/2023, 07/06/2023, 06/01/2023 INFLUENZA VACCINE (Season Ended) 2025 ZOSTER VACCINE (1 of 2) 01/26/2050 HIB VACCINE Aged Out 2000, 2000, 2000 No longer eligible based on patient's age to complete this topic PNEUMOCOCCAL VACCINE Aged Out 2000, 2000, 2000 No longer eligible based on patient's age to complete this topic HEPATITIS C SCREENING Completed 09/02/2021 HIV SCREENING Completed 09/02/2021 MENINGOCOCCAL (Group B) VACCINE SHARED DECISION-MAKING Aged Out No longer eligible based on patient's age to complete this topic MENINGOCOCCAL GROUPS A/C/Y/W VACCINE Aged Out No longer eligible b ased on patient's age to complete this topic Procedures Procedure Name Priority Date/Time Associated Diagnosis Comments PAP IMAGE-GUIDED RFLX HPV+CT/NG+TRICH Routine 09/02/2021 2:35 PM EMPLOYMENT SUPERVISOR Well woman exam with routine gynecological exam Screen for STD (sexually transmitted disease) HEPATITIS C AB W/RFLX TO HCV RNA QN PCR Routine 09/02/2021 Well woman exam with routine gynecological exam Screen for STD (sexually transmitted disease) HIV-1 HIV-2 ANTIBODY + HIV P24 AG PANEL Routine 09/02/2021 Well woman exam with routine gynecological exam Screen for STD (sexually transmitted disease) from Last 3 Months or Most Recently Relevant to Health Maintenance Results * PAP IMAGE-GUIDED RFLX HPV+CT/NG+TRICH (09/02/2021 2:35 PM EMPLOYMENT SUPERVISOR) Case Report Gynecologic Cytology Report Case: [id number] Authorizing Provider: Lorin Ng MD Collected: 09/02/2021 02:35 PM Ordering Location: [facility] Obstetrics Received: 09/03/2021 11:47 AM [facility] Screen: Antony Mendenhall Pathologist: Rachel Avalos MD Specimen: THINPREP - IMAGE GUIDED, Cervix/Endocervix 09/07/2021 2:58 PM EMPLOYMENT SUPERVISOR [facility] LMP 08/1809/07/2021 2:58 PM EMPLOYMENT SUPERVISOR [facility] Menstrual Status None Applicable 04/2021 2:58 PM EMPLOYMENT SUPERVISOR [facility] Specimen Adequacy Satisfactory for evaluation, endocervical/trans formation zone component present. 09/07/2021 2:58 PM EMPLOYMENT SUPERVISOR [facility] Categorization Epithelial cell abnormality. 09/07/2021 2:58 PM EMPLOYMENT SUPERVISOR [facility] Interpretation BUSINESS SUPPORT COORDINATOR Atypical squamous cells of undetermined significance (ASC-US). 09/07/2021 2:58 PM EMPLOYMENT SUPERVISOR [facility] at [address] EMPLOYMENT SUPERVISOR Other Infection with fungal organisms morphologically consistent with Mariana species. 09/07/2021 2:58 PM EMPLOYMENT SUPERVISOR [facility] Pap Footnote The Pap Smear is a screening test. False positive and false negative results occur. Negative results do not preclude abnormalities, thus clinical correlation is required. This specimen was evaluated by the ThinPrep Imaging System along with an additional manual rescreening by a manager of marketing and/or pathologist. 09/07/2021 2:58 PM EMPLOYMENT SUPERVISOR [facility] Embedded Images 2:58 PM EMPLOYMENT SUPERVISOR [facility] Pathology/Cytolo gy MISCELLANEOUS SAMPLES / Unknown 09/02/2021 2:35 PM EMPLOYMENT SUPERVISOR 09/03/2021 11:47 AM EMPLOYMENT SUPERVISOR us Lorin Ng MD LAB - PATHOLOGY/CYTOLOGY ORDERAB LES Final Result [facility] [address] [place], [place] [address] [phone] * HEPATITIS C AB W/RFLX TO HCV RNA QN PCR (09/02/2021) Pathologist [facility] Hepatitis C Antibody NON-REACTI VE NON-REACT SHAQ [facility] Signal to Cut-Off 0.01 <1.00 [facility] Comment: HCV antibody was non-reactive. There is no laboratory evidence of HCV infection. In most cases, no further action is required. However, if recent HCV exposure is suspected, a test for HCV RNA (test code 79108) is suggested. For additional information please refer to http://Surplex.Fyusion/faq/PKN09w6 (This link is being provided for informational/ educational purposes only.) Test Performed at: [employer] [address] [place] [address] SULMA MAGANA DO,MPH Blood BLOOD SPECIMEN / Unknown 09/02/2021 09/02/2021 2:26 PM EMPLOYMENT SUPERVISOR Lorin Ng MD LAB - CHEMISTRY ORDERABLES Final Result [facility] [address] [place] [address] * HIV-1 HIV-2 ANTIBODY + HIV P24 AG PANEL (09/02/2021) [facility] HIV Screen 4th Generation w Reflex NON-REACT SHAQ NON-REACT SHAQ [facility] Comment: HIV-1 antigen and HIV-1/HIV-2 antibodies were not detected. There is no laboratory evidence of HIV infection. PLEASE NOTE: This information has been disclosed to you from records whose confidentiality may be protected by state law. If your state requires such protection, then the state law prohibits you from making any further disclosure of the information without the specific written consent of the person to whom it pertains, or as otherwise permitted by law. A general authorization for the release of medical or other information is NOT sufficient for this purpose. For additional information please refer to http://Surplex.Fyusion/faq/KKR093 (This link is being provided for informational/ educational purposes only.) The performance of this assay has not been clinically validated in patients less than 2 years old. Test Performed at: [employer] [facility] [employer] [address] [address] SULMA MAGANA DO,MPH Blood BLOOD SPECIMEN / Unknown 09/02/2021 09/02/2021 2:26 PM EMPLOYMENT SUPERVISOR Lorin Ng MD LAB - CHEMISTRY ORDERABLES Final Result [facility] [address] [place] [address] from Last 3 Months or Most Recently Relevant to Health Maintenance Insurance [place] [address] ANTHEM ANTHEM ANTHEM ANTHEM Care Teams Hairspring Studder Relationship Specialty Start Date End Date Chester Bañuelos MD [address] [place] [address] [place] [phone] PCP - General Family Medicine 07/06/23
[2025-03-14 14:14] VITALS: BP 124/68; PULSE 130; RESP 16; TEMP 37.4; O2SAT 100
--- OUTSIDE RECORDS SUMMARY | 2025-03-14 14:51 | XMS_ITS | Clinical Summary ---
Author Organization [facility] Address [address] [place] [address] Care Team Providers Care Cloth Boil Off Machine Operator Name Role Phone Chester Bañuelos MD Primary Care Provider [phone] Allergies Active Allergy Reactions Criticality Noted Date [...] 09/01/2020 Assessment & Plan (09/01/2020 2:46 PM WELT BEATER): Responded well to switch from Lexapro to [...] 06/18/2019 Assessment & Plan (09/01/2020 2:47 PM WELT BEATER): Responding well significant reduction in need for Ativan. Gastroesophageal reflux disease without esophagi tis 06/18/2019 Acne vulgaris 01/24/2015 Multiple benign nevi 01/24/2015 Resolved Problems Problem Noted Date Diagnosed Date Resolved Date Bipolar 1 disorder, depressed, moderate 03/28/2023 05/22/2023 Encounters Date Type Department Care Team Description 02/03/2025 2:00 PM CDT Telemedicine [facility] Family Medicine at [address] [address] Chester Bañuelos MD ALIREZA (generalized [...] 03/22/2007 Surgical History Surgery Date Site/Laterality Comments CT DRAINAGE FINGER ABSCESS SIMPLE Incision And Drainage Of Finger Abscess - (Added by TW Conv) CT TONSILLECTOMY PRIMARY/SEC ONDARY <AGE 12 Tonsillectomy - [...] on file Legal Sex Female 10:51 PM WELT BEATER Gender Identity Female 03/26/2020 10:19 AM CDT [...] Maintenance Insurance [employer] [place] Care Teams Cloth Boil Off Machine Operator Relationship Specialty Start Date End Date Chester Bañuelos MD [address] [place] [address] PCP - General Family Medicine 05/22/23
--- OUTSIDE RECORDS SUMMARY | 2025-03-14 14:51 | XMS_ITS | Referral Summary ---
Author Organization [facility] Address [address] [place] [address] Care Team Providers Care Staff Electronic Warfare Officer Name Role Phone Chester Bañuelos MD Primary Care Provider [phone] Encounters Date Type Department Care Team Description 02/03/2025 2:00 PM CDT Telemedicine [facility] Family Medicine at [address] [place] [address] Chester Bañuelos MD ALIREZA (generalized [...] 09/01/2020 Assessment & Plan (09/01/2020 2:46 PM ELECTRICIANS TOP HELPER): Responded well to switch from Lexapro to [...] 06/18/2019 Assessment & Plan (09/01/2020 2:47 PM ELECTRICIANS TOP HELPER): Responding well significant reduction in need for [...] on file Legal Sex Female 10:51 PM ELECTRICIANS TOP HELPER Gender Identity Female 03/26/2020 10:19 AM CDT [...] Most Recently Relevant to Health Maintenance Insurance [facility] Care Teams Staff Electronic Warfare Officer Relationship Specialty Start Date End Date Chester Bañuelos MD [facility] [place] [address] [place] [address] PCP - General Family Medicine 05/22/23
--- OUTSIDE RECORDS SUMMARY | 2025-03-14 14:51 | XMS_ITS | Clinical Summary ---
Author Organization [facility] Address [address] [place] [address] Care Team Providers Care [employer] Assistant Principal Name Role Phone Chester Bañuelos MD Primary Care Provider [phone] Source Comments [facility],non-owned Affiliates and Associated Physician Practices is amultiple site organization consisting of ambulatory clinics and hospital sitesin [place], [place], [place] and [place]. This disclosure is being madepursuant to the Care Everywhere program and may not contain all information available regarding this patient. Last updated 18.[facility] Allergies Active Allergy Reactions Criticality Noted Date [...] 11/18/2020 Assessment & Plan (11/18/2020 4:30 PM PRIVATE INVESTIGATOR): - No atypical or concerning moles on exam today - Reviewed ABCDEs of melanoma - Sun protection reviewed, handout provided - Annual FBSE recommended - Strongly advised patient to stop tanning bed use; Counseled on associated risks of skin cancer and skin aging Lentigines 11/18/2020 Assessment & Plan (11/18/2020 4:31 PM PRIVATE INVESTIGATOR): - Benign, patient reassured - Skin cancer, [...] on file Legal Sex Female 5:42 AM PRIVATE INVESTIGATOR Gender Identity Not on file Sexual Orientation Not on file Last Filed Vital Signs Vital Sign Reading Time Taken Comments Blood Pressure 114/74 07/06/2023 8:38 AM CDT Pulse 75 06/01/2023 7:28 AM CDT Temperature 36.8 C (98.2 F) 11/18/2020 2:00 PM PRIVATE INVESTIGATOR Respiratory Rate 20 04/28/2022 8:30 AM CDT [...] IMAGE-GUIDED RFLX HPV+CT/NG+TRICH Routine 09/02/2021 2:35 PM PRIVATE INVESTIGATOR Well woman exam with routine gynecological exam [...] PAP IMAGE-GUIDED RFLX HPV+CT/NG+TRICH (09/02/2021 2:35 PM PRIVATE INVESTIGATOR) Case Report Gynecologic Cytology Report Case: [id number] Authorizing Provider: Lorin Ng MD Collected: 09/02/2021 02:35 PM Ordering Location: [facility] Obstetrics Received: 09/03/2021 11:47 AM [facility] First Screen: Antony Mendenhall Pathologist: Rachel Avalos MD Specimen: THINPREP - IMAGE GUIDED, Cervix/Endocervix 09/07/2021 2:58 PM PRIVATE INVESTIGATOR [facility] LMP 08/1809/07/2021 2:58 PM PRIVATE INVESTIGATOR [facility] Menstrual Status None Applicable 04/2021 2:58 PM PRIVATE INVESTIGATOR [facility] Specimen Adequacy Satisfactory for evaluation, endocervical/trans formation zone component present. 09/07/2021 2:58 PM PRIVATE INVESTIGATOR [facility] Categorization Epithelial cell abnormality. 09/07/2021 2:58 PM PRIVATE INVESTIGATOR [facility] Interpretation SIGNAL PROCESSING ENGINEER Atypical squamous cells of undetermined significance (ASC-US). 09/07/2021 2:58 PM PRIVATE INVESTIGATOR [facility] at [address] PRIVATE INVESTIGATOR Other Infection with fungal organisms morphologically consistent with Mariana species. 09/07/2021 2:58 PM PRIVATE INVESTIGATOR [facility] Pap Footnote The Pap Smear is a screening test. False positive and false negative results occur. Negative results do not preclude abnormalities, thus clinical correlation is required. This specimen was evaluated by the ThinPrep Imaging System along with an additional manual rescreening by a elastic assembler and/or pathologist. 09/07/2021 2:58 PM PRIVATE INVESTIGATOR [facility] Embedded Images 2:58 PM PRIVATE INVESTIGATOR [facility] Pathology/Cytolo gy MISCELLANEOUS SAMPLES / Unknown 09/02/2021 2:35 PM PRIVATE INVESTIGATOR 09/03/2021 11:47 AM PRIVATE INVESTIGATOR us Lorin Ng MD LAB - PATHOLOGY/CYTOLOGY ORDERAB LES Final Result [facility] [address] [place], [place] [address] [phone] * HEPATITIS C AB W/RFLX TO HCV RNA QN PCR (09/02/2021) Pathologist [facility] Hepatitis C Antibody NON-REACTI VE NON-REACT [facility] Signal to Cut-Off 0.01 <1.00 [facility] Comment: HCV antibody was non-reactive. There is no laboratory evidence of HCV infection. In most cases, no further action is required. However, if recent HCV exposure is suspected, a test for HCV RNA (test code 16665) is suggested. For additional information please refer to http://Echometrix.POWWOW/faq/GFN29w4 (This link is being provided for informational/ educational purposes only.) Test Performed at: [facility] [address] [place] [address] SULMA MAGANA DO,MPH Blood BLOOD SPECIMEN / Unknown 09/02/2021 09/02/2021 2:26 PM PRIVATE INVESTIGATOR Lorin Ng MD LAB - CHEMISTRY ORDERABLES Final Result [facility] [address] [place] [address] * HIV-1 HIV-2 ANTIBODY + HIV P24 AG PANEL (09/02/2021) [facility] HIV Screen 4th Generation w Reflex NON-REACT [...] purpose. For additional information please refer to http://Echometrix.POWWOW/faq/HII069 (This link is being provided for informational/ educational purposes only.) The performance of this assay has not been clinically validated in patients less than 2 years old. Test Performed at: [facility] [address] [place] [place] [address] SULMA MAGANA DO,MPH Blood BLOOD SPECIMEN / Unknown 09/02/2021 09/02/2021 2:26 PM PRIVATE INVESTIGATOR Lorin Ng MD LAB - CHEMISTRY ORDERABLES Final Result [facility] [address] [place] [address] from Last 3 Months or Most Recently Relevant to Health Maintenance Insurance [place] [address] ANTHEM ANTHEM ANTHEM ANTHEM Care Teams High School Assistant Principal Relationship Specialty Start Date End Date Chester Bañuelos MD [address] [place] [address] [place] [phone] PCP - General Family Medicine 07/06/23
[2025-03-14] MEDS: SODIUM CHLORIDE 0.9% IV 2,000 ML 999 ML IV CONT (15:42)
[2025-03-14] MEDS: ONDANSETRON INJ 4 MG/2 ML VIAL IV PUSH (15:43)
[2025-03-14] MEDS: KETOROLAC 15 MG/ML VIAL (*BKC) IV PUSH (15:44)
[2025-03-14] MEDS: dexAMETHasone SOD PHOS INJ 10 MG/ML 1 ML VIAL IV PUSH (15:45)
--- NOTE | 2025-03-14 15:45 | ED_ITS ---
HPI - General Adult General Chief complaint: Nausea/Vomiting/Diarrhea Stated complaint: Multiple Medical Complaints Time Seen by Provider: 03/14/25 14:08 History of Present Illness HPI narrative: 25-year-old female presenting to the emergency department with complaints of fever, sore throat, painful swallowing, chills, back pain. Patient was diagnosed with strep throat in the urgent care office this morning and felt worse after discharge with antibiotics. She came to the ER for evaluation. She states symptoms started last night and she knows that she was hot and cold and had tachycardia in the 120s. Denies any cough, trouble breathing, chest pain, abdominal pain. No diarrheal, no family members with similar symptoms. Did not receive her 1st dose of antibiotics and went to go pick it up at the pharmacy but felt nauseous and vomited several times. 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 female adult Surgical History Surgical History H/O wisdom tooth extraction No pertinent past surgical history Social History Social History Smoking status: Former smoker Alcohol intake: current Substance use: never Substance use type: does not use Do You Feel Safe in your Home?: Yes Lack of Transportation: No Lack of Food: Never True Current Housing: I Have Housing Concerned About Future Housing: No Difficulty Paying Gas/Electric Bills: No Difficulty Paying for Meds: No Currently Unemployed: No Education: High School Diploma/GED Difficulty w/ Childcare or Family Care: No Living arrangements: with roommate(s) Occupation/Education: occupation Gender identity (if verbalized by the patient): Female Exam 2 Narrative: GENERAL: [Well-appearing, well-nourished, and in no acute distress.] HEAD: [Normocephalic, atraumatic.] EYES: [PERRLA and EOMI.] ENT: Posterior oropharynx with some erythema but no exudate, no tonsillar erythema or enlargement. NECK: Anterior lymphadenopathy, tender to palpation, no restricted range of motion. CHEST: [Clear to auscultation. No respiratory distress.] HEART: [Regular rate and rhythm]. No murmur heard. [Normal peripheral pulses.] ABDOMEN: [Soft, nondistended], [nontender], [No rigidity or guarding] EXTREMITIES: Normal range of motion. [No edema.] SKIN: Warm, dry, no rash. NEURO: [No focal deficits]. Alert and oriented [x3.] PSYCH: [Normal mood and affect.] Course Vital Signs Vital signs: Vital Signs Temperature 37.4 C 03/14/25 14:14 Pulse Rate 130 H 03/14/25 14:14 Respiratory Rate 16 03/14/25 14:14 Blood Pressure 124/68 03/14/25 14:14 Pulse Oximetry 100 03/14/25 14:14 Temperature 37.4 C 03/14/25 16:01 Pulse Rate 113 H 03/14/25 17:53 Respiratory Rate 18 03/14/25 17:05 Blood Pressure 101/53 L 03/14/25 17:18 Pulse Oximetry 100 03/14/25 17:18 Medical Decision Making [facility] Narrative Medical decision making narrative: 25-year-old female presenting to the ER for evaluation of fever, chills, myalgias, back pain, sore throat and recently diagnosed with strep throat this morning. She did not receive any antibiotics yet and felt to nauseous and vomited in the car. She came to the ER. She is tachycardic with a pulse 130, afebrile here, has some posterior pharyngeal erythema and exudates. Symptoms consistent with strep throat. Low suspicion other serious bacterial injury or other potential source of patient's symptomatology but will evaluate with a chest x-ray, CBC, CMP, urinalysis. She was given Decadron Toradol for symptom control as well as Zofran and fluid bolus. test ordered. Patient does have a leukocytosis of 15.6, no anemia. Normal platelet count. Electrolytes are unremarkable. Normal renal function, normal glucose, normal LFTs. Urinalysis with squamous cells contamination but no florid infection findings. Negative test. Positive strep swab. Chest x-ray shows no acute cardiopulmonary pathology. Patient re-evaluated after fluids and steroids and Toradol and had improvement. Her vital signs have improved. She will be safe for discharge home at this time given her unremarkable workup and diagnosis of strep. She was given return precautions as well as Zofran and anti- inflammatories on discharge. Patient comfortable with plan and will follow-up with regular doctor or return with any concerns. Medical Records Medical records reviewed: Yes I reviewed the external patient's medical records. Vital Signs Vital Signs: Vital Signs Temperature 37.4 C 03/14/25 14:14 Pulse Rate 130 H 03/14/25 14:14 Respiratory Rate 16 03/14/25 14:14 Blood Pressure 124/68 03/14/25 14:14 Pulse Oximetry 100 03/14/25 14:14 Temperature 37.4 C 03/14/25 16:01 Pulse Rate 113 H 03/14/25 17:53 Respiratory Rate 18 03/14/25 17:05 Blood Pressure 101/53 L 03/14/25 17:18 Pulse Oximetry 100 03/14/25 17:18 Lab Data Lab results reviewed: Yes I reviewed the patient's lab results. 03/14/25 15:40 03/14/25 15:40 Labs: Lab Results 03/14/25 03/14/25 Range/Units 15:40 15:53 WBC 15.6 H (4.5-10.0) K/mm3 RBC 4.34 (4.2-5.4) M/mm3 Hgb 13.1 (12.0-15.0) g/dL Hct 39.6 (37.0-47.0) % MCV 91.2 (80-100) fl MCH 30.2 (26-34) pg MCHC 33.1 (32-36) g/dl RDW 12.7 (11.5-14.5) % Plt Count 216 (150-375) k/mm3 MPV 10.5 H (7.4-10.4) fl Immature Gran % (Auto) 0.4 (0-0.5) % Neut % (Auto) 90.1 H (45.5-73.1) % Lymph % (Auto) 2.8 L (18.3-44.2) % [place] % (Auto) 5.8 (2.6-8.5) % Eos % (Auto) 0.6 (0-4.4) % Baso % (Auto) 0.3 (0.2-1.2) % Lymph # (Auto) 0.44 L (0.9-3.2) K/mm3 [place] # (Auto) 0.9 H (0.1-0.6) K/mm3 Eos # (Auto) 0.1 (0-0.3) K/mm3 Baso # (Auto) 0.0 (0.0-0.1) K/mm3 Abs Immat Gran (auto) 0.06 H (0.00-0.031) K/mm3 Absolute Neuts (auto) 14.1 H (1.3-6.7) K/mm3 Absolute Nucleated RBC 0.000 (0.0-0.012) K/mm3 Nucleated RBC % 0.0 (0.0-0.2) % Sodium 137 (137-145) mmol/L Potassium 3.9 (3.4-5.0) mmol/L Chloride 105 (98-107) mmol/L Carbon Dioxide 20 L (22-30) mmol/L Anion Gap 12 (4-12) mmol/L BUN 12 D (7-17) mg/dL Creatinine 0.59 L (0.7-1.0) mg/dL Estim Creat Clear Calc 127 ml/min Estimated GFR > 60 (59 - ) Glucose 99 (65-110) mg/dL Calcium 9.4 (8.4-10.2) mg/dL Total Bilirubin 0.9 (0.2-1.3) mg/dL AST 23 (14-36) U/L ALT 16 (6-35) U/L Alkaline Phosphatase 52 (38-126) U/L Total Protein 7.5 (6.3-8.2) g/dL Albumin 4.3 (3.5-5.1) g/dL Urine Color Dark yellow (Yellow) Urine Appearance Clear (Clear) Urine pH 7.0 (5.0-9.0) Ur Specific [place] 1.026 (1.001-1.035) Urine Protein Trace (Negative) mg/dL Urine Glucose (UA) Negative (Negative) mg/dL Urine Ketones Trace H (Negative) mg/dL Ur Blood (Man) Negative (Negative) Urine Nitrate Negative (Negative) Urine Bilirubin Negative (Negative) Urine Urobilinogen 1.0 (<2.0) mg/dL Leukocyte Esterase Rfl Trace H (Negative) MAUDE/UL Urine RBC 0-2 (0-2) /hpf Urine WBC 6-10 H (0-3) /hpf Ur Squamous Epith Cells Moderate (Few) /hpf Urine Bacteria 1+ H /hpf Urine Casts 0-2 POC Urine HCG, Qual Negative (Negative) Imaging Data Attestation: I personally reviewed and interpreted this imaging study as follows: My impression: Impressions Chest X-Ray 03/14/25 15:44 IMPRESSION: No acute cardiopulmonary pathology. Discharge Plan Discharge Clinical Impression: Strep throat Patient Disposition: Home Condition: Stable Instructions: Antibiotic Form, Pharyngitis (ED), Strep Throat (DC) Additional Instructions: Follow-up with your primary care provider, your symptoms are consistent with strep throat causing a bacterial infection and your symptoms. Take the antibiotics that were prescribed and we will send you home with some nausea controlling medications. Maintain good oral hydration. Return with any new or worsening/persisting concerns. Call your regular doctor for close outpatient follow-up. Patient Language: Eritrean Prescriptions: New ondansetron 4 mg tablet,disintegrating 4 mg PO Q8H PRN (Reason: nausea and vomiting) Qty: 20 0RF acetaminophen [Tylenol Extra Strength] 500 mg tablet 1,000 mg PO TID PRN (Reason: pain) Qty: 30 0RF No Action sertraline 50 mg tablet 1 tablet PO DAILY amoxicillin-pot clavulanate 875-125 mg tablet 1 tablet PO Q12H 10 Days Qty: 20 0RF Follow-up/Referrals: Sarmad,MD Chester [Primary Care Provider] - Time of Disposition: 18:41
[2025-03-14 15:48] VITALS: BP 121/72; PULSE 115; RESP 18; O2SAT 100
[2025-03-14 15:55] LABS: BEDSIDEPREGUCG Negative (Negative)
[2025-03-14 15:57] LABS: Basophils Percent Auto 0.3 % (0.2-1.2); Eosinophils Absolute Auto 0.1 K/mm3 (0-0.3); Eosinophils Percent Auto 0.6 % (0-4.4); Hematocrit 39.6 % (37.0-47.0); Hemoglobin 13.1 g/dL (12.0-15.0); Immature Granulocyte Absolute 0.06 K/mm3 (0.00-0.031); Immature Granulocyte Percent A 0.4 % (0-0.5); Lymphocytes Absolute Auto 0.44 K/mm3 (0.9-3.2); Lymphocytes Percent Auto 2.8 % (18.3-44.2); Mean Corpuscular HGB Conc 33.1 g/dl (32-36); Mean Corpuscular Hemoglobin 30.2 pg (26-34); Mean Corpuscular Volume 91.2 fl (80-100); Mean Platelet Volume 10.5 fl (7.4-10.4); Monocytes Absolute Auto 0.9 K/mm3 (0.1-0.6); Monocytes Percent Auto 5.8 % (2.6-8.5); Neutrophils Absolute Auto 14.1 K/mm3 (1.3-6.7); Neutrophils Percent Auto 90.1 % (45.5-73.1); Platelet Count Result 216 k/mm3 (150-375); Red Blood Count 4.34 M/mm3 (4.2-5.4); Red Cell Distribution Width 12.7 % (11.5-14.5); White Blood Count 15.6 K/mm3 (4.5-10.0)
[2025-03-14] MEDS: SODIUM CHLORIDE 0.9% IV 1,000 ML 999 ML IV CONT (15:58)
[2025-03-14 16:01] VITALS: TEMP 37.4
[2025-03-14 16:03] LABS: Add Urine Microscopic? YES; Appearance Urine Clear (Clear); Bacteria Urine 1+ /hpf; Bilirubin Urine Negative (Negative); Blood Urine Negative (Negative); Color Urine Dark Yellow (Yellow); Glucose Urine UA Negative (Negative); Ketones Urine Trace mg/dL (Negative); Leukocyte Esterase Ur Trace LEU/UL (Negative); Nitrate Urine Negative (Negative); Non Pathogenic Casts 0-2; Protein Urine Trace mg/dL (Negative); RBC Urine 0-2 /hpf (0-2); Specific Grav Ur 1.026 (1.001-1.035); Squamous Epithelial Cell Urine Moderate /hpf (Few)
[2025-03-14 16:08] LABS: Alanine Aminotransferase 16 U/L (6-35); Albumin Level 4.3 g/dL (3.5-5.1); Alkaline Phosphatase 52 U/L (38-126); Anion Gap 12 mmol/L (4-12); Aspartate Amino Transferase 23 U/L (14-36); Bilirubin,Total 0.9 mg/dL (0.2-1.3); Blood Urea Nitrogen 12 mg/dL (7-17); Calcium 9.4 mg/dL (8.4-10.2); Carbon Dioxide 20 mmol/L (22-30); Chloride 105 mmol/L (98-107); Estimated CRCL calculation 127 ml/min; Estimated Glomerular Filt Rate > 60; Glucose 99 mg/dL (65-110); Potassium 3.9 mmol/L (3.4-5.0); Sodium 137 mmol/L (137-145); Total Protein 7.5 g/dL (6.3-8.2)
[2025-03-14 17:05] VITALS: PULSE 111; RESP 18; O2SAT 100
[2025-03-14 17:18] VITALS: BP 101/53; PULSE 114; O2SAT 100
[2025-03-14 17:53] VITALS: PULSE 113
== END 2025-03-14 18:47 | disposition home or self-care (01) ==
PROVIDERS: Emergency Provider Student in an Organized Health Care Education/Training Program; PCP Family Medicine
DX: J02.0 Streptococcal pharyngitis (principal); Z87.891 Personal history of nicotine dependence
CPT/HCPCS: 36415; 71045; 80053; 81001; 81025; 85025; 96361; 96374; 96375; 99284; J1100; J1885; J2405; J7030